=== PATIENT | female | born 1985 | race Caucasian/White ===

== ENCOUNTER 2016-08-18 01:25 | Emergency (ER) | payer OTHER ==
[2016-08-18 01:31] VITALS: BP 151/95
[2016-08-18] MEDS ORDERED: oxyCODONE/Acetamin 5/325 MG* TAB PO ONE ×2 (02:00)
--- NOTE | 2016-08-18 19:33 | ED ---
Throat Pain/Nasal Congestion - HPI Summary HPI Summary: Patient arrives with dental pain x 1 week. States she was seen for a dental infection after extraction of left bottom molar on Tuesday. Given antibiotics. Now stating pain is still present with halitosis and feeling that something is stuck in the broken tooth. Would like better pain management for the tooth given the pain is slowly worsening. She is able to see a dentist at end of the week. Patient is otherwise healthy and takes no medications. Denies fever, RAY , neck stiffness or pain. States intermittently will hurt to swallow but is drinking and eating OK. - History of Current Complaint Chief Complaint: EDDentalPain Time Seen by Provider: 08/18/16 01:36 Hx Obtained From: Patient Onset/Duration: Gradual Onset Severity: Moderate Associated Signs And Symptoms: Positive: Dysphagia - Epiglottits Risk Factors Epiglottis Risk Factors: Negative - Allergies/Home Medications Allergies/Adverse Reactions: Allergies Allergy/AdvReac Type Severity Reaction Status Date / Time Penicillins [PCN] Allergy Intermediate Rash Verified 05/08/15 15:42 PMH/Surg Hx/FS Hx/Imm Hx Previously Healthy: Yes Endocrine/Hematology History: Reports: Hx Thyroid Disease - Hx of Hyperthroidism - JERAMIE'S started at age 12 (not now) Denies: Hx Anticoagulant Therapy, Hx Diabetes, Hx Systemic Lupus Erythematosus Cardiovascular History: Denies: Hx Congestive Heart Failure, Hx Hypertension Respiratory History: Denies: Hx Asthma History: Denies: Hx Dialysis, Hx Renal Disease Musculoskeletal History: Denies: Hx Rheumatoid Arthritis Sensory History: Reports: Hx Contacts or Glasses Opthamlomology History: Reports: Hx Contacts or Glasses - Cancer History Hx Chemotherapy: No Infectious Disease History: No Infectious Disease History: Denies: Traveled Outside the [place] in Last 30 Days - Family History Known Family History: Positive: Cardiac Disease, Hypertension, Other - THYROID DZ Negative: Diabetes - Social History Occupation: Employed Full-time Lives: With Family Alcohol Use: Occasionally Hx Substance Use: No Substance Use Type: Reports: None Hx Tobacco Use: No Smoking Status (MU): Former Smoker Review of Systems Constitutional: Negative Positive: Dental Pain, Sore Throat Cardiovascular: Negative Respiratory: Negative Gastrointestinal: Negative Skin: Negative Neurological: Negative Positive: Anxious All Other Systems Reviewed And Are Negative: Yes Physical Exam Triage Information Reviewed: Yes Vital Signs On Initial Exam: Initial Vitals Temp Pulse Resp BP Pulse Ox 98.3 F 90 16 151/95 98 08/18/16 01:29 08/18/16 01:29 08/18/16 01:29 08/18/16 01:29 08/18/16 01:29 Vital Signs Reviewed: Yes Appearance: Positive: Well-Appearing, Pain Distress Skin: Positive: Skin Color Reflects Adequate Perfusion Head/Face: Positive: TMJ Tenderness Eyes: Positive: Normal, EOMI ENT: Positive: Pharynx normal, TMs normal, Other - halitosis Dental: Positive: Percussion Tenderness @ - left lower mandible, Dental Fracture @ - left lower molar Neck: Positive: Supple, Nontender Respiratory/Lung Sounds: Positive: Clear to Auscultation, Breath Sounds Present Cardiovascular: Positive: Normal Musculoskeletal: Positive: Normal Neurological: Positive: Normal, Speech Normal Psychiatric: Positive: Anxious AVPU Assessment: Alert Diagnostics - Vital Signs Vital Signs Temp Pulse Resp BP Pulse Ox 08/18/16 01:29 98.3 F 90 16 151/95 98 - Laboratory Lab Statement: Any lab studies that have been ordered have been reviewed, and results considered in the medical decision making process. EENT Course/Dx - Course Course Of Treatment: No FB seen in broken lower left molar. halitosis and possible infection seen. Patient currently on Clindamycin 900mg daily for 2 days. Now still feeling worsening pain in the molar radiating to jaw and down left side of neck. states she is able to follow up with dentist this week. no fever. able to swallow. no pharyngeal erythema. no tonsillar exudates or cervical adenopathy. will give pain management and continue on clindamycin. - Differential Diagnoses Differential Diagnoses: Dental Abscess, Dental Caries, Foreign Body, Post- Extraction Pain - Diagnoses Provider Diagnoses: Tooth fracture Discharge - Discharge Plan Condition: Stable Disposition: HOME Prescriptions: oxyCODONE/Acetamin 5/325 MG* [Percocet 5/325 TAB*] 1 tab PO Q4H PRN #20 tab MDD 6 PRN Reason: Pain Patient Education Materials: Dental Abscess (ED) Referrals: Micky Noguera MD [Medical Doctor] - Alona Saha NP [Primary Care Provider] - Additional Instructions: Ibuprofen 600mg three times daily as needed for pain. Take oxycodone every 4 hours as needed for pain. Follow up with your dentist. If you cannot get into see your dentist, call ENT doctor. Images - Images Dental: 1 - cracked tooth with cavity, FB not seen
== END 2016-08-18 01:57 | disposition home or self-care (01) ==
LOC: ED 01:25
DX: K03.81 Cracked tooth (principal); R13.10 Dysphagia, unspecified
CPT/HCPCS: 99282; A9270-GY

== ENCOUNTER 2017-09-15 21:24 | Emergency (ER) | payer OTHER ==
[2017-09-16] MEDS ORDERED: diPHENhydraMINE IV* 50 MG/ML 1 ml VIAL (BENADRYL) IV ONE (01:06)
[2017-09-16] MEDS ORDERED: Ketorolac INJ* 30 MG/ML 1 ML VIAL IV PUSH ONE (01:06)
--- NOTE | 2017-09-16 01:12 | ED ---
Headache - HPI Summary HPI Summary: 32-year-old female presents with headache for the past. She states the headache is constant. She states that Tylenol ibuprofen make it little bit better. She states her headache is about a 8 out of 10. She does not have a history of headaches. She denies any family history of headaches. She states it feels like she is about to get sick but she doesn't. She denies any fever. Denies any sinus congestion. She has been taking Tylenol with Codeine without relief. She denies any photophobia. She admits occasional nausea and vomiting. She states the headache is most present in the posterior aspect of her head. She states sometimes pain travels to her neck. She was also prescribed Flexeril but hasn't taken it yet. Was seen by primary and wanted to get CT but insurance would not cover it. primary prescribed flexeril and Tylenol with codeine - History Of Current Complaint Chief Complaint: EDHeadache Stated Complaint: HEADACHE Time Seen by Provider: 09/16/17 01:01 Hx Last Menstrual Period: last week - Allergies/Home Medications Allergies/Adverse Reactions: Allergies Allergy/AdvReac Type Severity Reaction Status Date / Time Penicillins Allergy Intermediate Rash Verified 09/16/17 00:16 PMH/Surg Hx/FS Hx/Imm Hx Endocrine/Hematology History: Reports: Hx Thyroid Disease - Hx of Hyperthroidism - JERAMIE'S started at age 12 (not now) Denies: Hx Anticoagulant Therapy, Hx Diabetes, Hx Systemic Lupus Erythematosus Cardiovascular History: Denies: Hx Congestive Heart Failure, Hx Hypertension Respiratory History: Denies: Hx Asthma History: Denies: Hx Dialysis, Hx Renal Disease Musculoskeletal History: Denies: Hx Rheumatoid Arthritis Sensory History: Reports: Hx Contacts or Glasses Opthamlomology History: Reports: Hx Contacts or Glasses - Cancer History Hx Chemotherapy: No Infectious Disease History: No Infectious Disease History: Denies: Traveled Outside the [place] in Last 30 Days - Family History Known Family History: Positive: Cardiac Disease, Hypertension, Other - THYROID DZ, no family history of brain aneursym Negative: Diabetes - Social History Alcohol Use: Occasionally Hx Substance Use: No Substance Use Type: Reports: None Hx Tobacco Use: No Smoking Status (MU): Former Smoker Review of Systems Negative: Fever Negative: Chest Pain Negative: Shortness Of Breath Positive: Headache All Other Systems Reviewed And Are Negative: Yes Physical Exam Triage Information Reviewed: Yes Vital Signs On Initial Exam: Initial Vitals Temp Pulse Resp BP Pulse Ox 98.7 F 74 18 138/79 99 09/15/17 21:33 09/15/17 21:33 09/15/17 21:33 09/15/17 21:33 09/15/17 21:33 Vital Signs Reviewed: Yes Appearance: Positive: Well-Appearing Skin: Positive: Warm, Dry Head/Face: Positive: Normal Head/Face Inspection Eyes: Positive: Normal, EOMI, BEAU, Conjunctiva Clear ENT: Positive: Normal ENT inspection, Pharynx normal, TMs normal. Negative: Sinus tenderness Respiratory/Lung Sounds: Positive: Clear to Auscultation, Breath Sounds Present Cardiovascular: Positive: Normal, RRR Musculoskeletal: Positive: Normal Neurological: Positive: Sensory/Motor Intact, Alert, Oriented to Person Place, Time, CN Intact II-III, Finger to Nose Psychiatric: Positive: Normal - [place] Coma Scale Best Eye Response: 4 - Spontaneous Best Motor Response: 6 - Obeys Commands Best Verbal Response: 5 - Oriented Coma Scale Total: 15 Diagnostics - Vital Signs Vital Signs Temp Pulse Resp BP Pulse Ox 09/15/17 22:40 99.2 F 62 18 124/74 100 09/15/17 21:33 98.7 F 74 18 138/79 99 - Laboratory Result Diagrams: 09/16/17 01:10 09/16/17 01:10 Lab Statement: Any lab studies that have been ordered have been reviewed, and results considered in the medical decision making process. Re-Evaluation - Re-Evaluation First Eval Re-Evaluation Time: 02:29 Change: Improved Comment: headache a little improvement, discussed will try decadron for headache if no improvement in 20 mins Headache Course/Dx - Course Course Of Treatment: 32-year-old female presents with headache for the past. She states the headache is constant. She states that Tylenol ibuprofen make it little bit better. She states her headache is about a 8 out of 10. She does not have a history of headaches. She denies any family history of headaches. She states it feels like she is about to get sick but she doesn't. She denies any fever. Denies any sinus congestion. She has been taking Tylenol with Codeine without relief. She denies any photophobia. She admits occasional nausea and vomiting. She states the headache is most present in the posterior aspect of her head. She states sometimes pain travels to her neck. She was also prescribed Flexeril but hasn't taken it yet. on exam normal neuro exam. labs wnl. patient feeling a little bit better. patient signed out to dr ramos pending CT. - Diagnoses Differential Diagnosis/HQI/PQRI: Migraine, Sinus Headache, Tension Headache, Viral Syndrome Provider Diagnoses: Headache Discharge - Discharge Plan Condition: Good Disposition: HOME Prescriptions: Dexamethasone TAB* [Decadron TAB*] 4 mg PO DAILY #4 tab Patient Education Materials: General Headache (ED) Referrals: Alona Saha SYSTEMS MANAGER [Primary Care Provider] - Additional Instructions: Follow up with primary within 5 days Take Tylenol or ibuprofen every 6 hours, can also try Excedrin Return to ED if develop any new or worsening symptoms
[2017-09-16 01:31] LABS: Hematocrit 37 % (35-47); Hemoglobin 12.1 g/dl (12.0-16.0); Mean Corpuscular HGB Conc 33 g/dl (31-36); Mean Corpuscular Hemoglobin 27 pg (27-31); Mean Corpuscular Volume 83 fL (80-97); Mean Platelet Volume 9 um3 (7.4-10.4); Platelet Count 181 10^3/ul (150-450); Red Blood Count 4.41 10^6/ul (4.0-5.4); Red Cell Distribution Width 14 % (10.5-15); White Blood Count 7.2 10^3/ul (3.5-10.8)
[2017-09-16] MEDS ORDERED: NS 0.9% 1000 ML* 1,000 ML IV ONE (01:35)
[2017-09-16 01:39] LABS: ABS Basophils 0 10^3/ul (0-0.2); ABS Eosinophils 0.1 10^3/ul (0-0.6); ABS Monocytes 0.8 10^3/ul (0-0.8); ABS Neutrophils 4.2 10^3/ul (1.5-7.7); ABS Nucleated RBC 0 10^3/ul; Eosinophil % 0.9 % (0-6); Lymphocyte % 28.4 % (25-47); Nucleated Red Blood Cells % 0
[2017-09-16] MEDS ORDERED: PROCHLORPERAZINE INJ 5 MG/ML 2 ML VIAL IV ONE (01:44)
[2017-09-16 01:49] LABS: EGFR Non-African American 93.3 (>60)
[2017-09-16] MEDS ORDERED: Dexamethasone IV* 4 MG/ML 1 ML (4 MG) IV SLOW PU ONE (02:23)
[2017-09-16 04:42] VITALS: BP 97/76
--- NOTE | 2017-09-16 04:53 | ED ---
Jamal Mckeon Nilda, scribed for Keegan Rashid MD on 09/16/17 at 0233 . Progress - Progress Note Progress Note: This pt is s/o by Meagan DOWELL), pending dispo, awaiting CT Head. CT Head, per radiologist, no acute brain parenchymal abnormality. No hemorrhage, mass or acute territorial infarct. Clear visualized paranasal sinuses. Visualized mastoid air cells clear. Dr. Rashid reviewed this report. Pt D/C with Dx RAY. Re-Evaluation - Re-Evaluation First Eval Re-Evaluation Time: 02:29 Change: Improved Comment: headache a little improvement, discussed will try decadron for headache if no improvement in 20 mins Course/Dx - Course Course Of Treatment: This pt is s/o by Meagan DOWELL), pending dispo, awaiting CT Head. CT Head, per radiologist, no acute brain parenchymal abnormality. No hemorrhage, mass or acute territorial infarct. Clear visualized paranasal sinuses. Visualized mastoid air cells clear. Dr. Rashid reviewed this report. Pt D/C with Dx RAY. - Diagnoses Provider Diagnoses: Headache The documentation as recorded by the Jamal ford Nilda accurately reflects the service I personally performed and the decisions made by Gay zayas Abdul, MD.
--- NOTE | 2017-09-16 07:53 | RAD ---
HISTORY: Headache COMPARISONS: None TECHNIQUE: Multiple contiguous axial CT scans were obtained of the head without intravenous contrast. FINDINGS: HEMORRHAGE/INFARCT: There is no hemorrhage or acute infarct. MASSES/SHIFT: There is no mass or shift. EXTRA-AXIAL SPACES: There are no extra-axial fluid collections. SULCI AND VENTRICLES: The sulci and ventricles are normal in size and position for the patient's stated age. CEREBRUM: There are no focal parenchymal abnormalities. BRAINSTEM: There are no focal parenchymal abnormalities. CEREBELLUM: There are no focal parenchymal abnormalities. VESSELS: The vessels are grossly normal. PARANASAL SINUSES: The paranasal sinuses are clear. ORBITS: The orbits are unremarkable. BONES AND SOFT TISSUE: No bone or soft tissue abnormalities are noted. OTHER: None IMPRESSION: NO ACUTE INTRACRANIAL PATHOLOGY.
== END 2017-09-16 04:44 | disposition home or self-care (01) ==
LOC: ED 21:24
DX: R51 Headache (principal); Z87.891 Personal history of nicotine dependence
CPT/HCPCS: 36415; 70450; 80053; 84702; 85025; 86308; 96374; 96375; 99283; J0780; J1100; J1200; J1885